=== PATIENT | male | born 1975 | race Caucasian/White ===

== ENCOUNTER 2017-05-21 22:00 | Emergency (ER) | payer OTHER ==
[~2017-05-21] VITALS: Ht 170.2 cm; Wt 68.0 kg
--- NOTE | ~2017-05-21 | EKG ---
[address] [address] ELECTROCARDIOGRAM REPORT Name: GERARDO VAUGHAN [id number] Admission: 05/21/17 Attend Phys: Discharge: 05/21/17 Date of : 73 Report #: [id number] THIS REPORT FOR: //name// [facility] ED Test Date: 2017-05-21 Test Time: 22:15:52 Pat Name: GERARDO VAUGHAN Department: Room: Gender: M Computer Systems Analyst: NADER : 1975 Requested By: Yariel Robledo Order Number: [id number] MD: Yahir Hansen Measurements Intervals [place] Rate: 73 P: 54 LA: 137 QRS: 46 QRSD: 85 T: 46 QT: 370 QTc: 408 Interpretive Statements Sinus rhythm Probable left atrial enlargement No previous ECG available for comparison Electronically Signed On 05-22-2017 9:24:49 CUSTOMER SERVICE REPRESENTATIVE TEACHER by Yahir Hansen [email or web address] <ELECTRONICALLY SIGNED> By: Yahir Hansen MD 05/22/17 0924 2215 2215 Yahir Hansen MD /EPI
[2017-05-21] MEDS ORDERED: VENTOLIN HFA 1818 GM INH (22:32)
[2017-05-21] MEDS ORDERED: PREDNISONE50 MG PO (22:32)
[2017-05-21] MEDS ORDERED: ALBUTEROL2.5 MG/31 INH (22:50)
[2017-05-21 23:18] VITALS: BP 120/63
== END 2017-05-21 23:19 | disposition home or self-care (01) ==
LOC: ER 22:00
DX: J45.901 Unspecified asthma with (acute) exacerbation (principal); Z98.890 Other specified postprocedural states; Z88.1 Allergy status to other antibiotic agents; Z88.5 Allergy status to narcotic agent; Z88.6 Allergy status to analgesic agent